=== PATIENT | male | born 1970 | race Caucasian/White ===

== ENCOUNTER 2020-11-30 19:29 | Emergency (ER) | payer OTHER, SELFPAY ==
--- NOTE | ~2020-11-30 | CT_ITS ---
EXAMINATION: CT HEAD WITHOUT CONTRAST CT CERVICAL SPINE WITHOUT CONTRAST CLINICAL INFORMATION: Fall COMPARISON: None. TECHNIQUE: Multidetector CT imaging of the head and cervical spine was performed without the use of intravenous contrast. Multiplanar reformats are reviewed. This CT examination was performed using dose optimization techniques as appropriate, variously including the following: *Automated exposure control *Adjustment of mA and/or kV according to patient size (this includes techniques or standardized protocols for targeted exams where dose is matched to indication/reason for exam; i.e. extremities or head) *Use of iterative reconstruction technique DLP: 836 mGy-cm. FINDINGS: There is no evidence of acute intracranial hemorrhage or territorial infarction. No abnormal mass effect or midline shift is seen. Jose to white matter differentiation is well preserved. No extra-axial fluid collections are identified. The ventricles are normal in size. There is no abnormal attenuation within the brain parenchyma. Bilateral posterior parietal scalp swelling and subgaleal hematomas. Calvarium and skull base intact. Atlantooccipital alignment is maintained. The vertebral bodies and posterior elements align normally. No acute fracture or subluxation. Vertebral body heights are maintained.Endplate osteophytes present from C3 through C7. Facet arthropathy present at T2-T3 and the left and C7-T1 on the left. The cervicomedullary junction and spinal cord are grossly unremarkable. The paraspinal soft tissues are unremarkable. The imaged lung apices are clear CT/CT cervical spine wo con IMPRESSION: No acute intracranial pathology. No cervical spine fracture or malalignment.
--- NOTE | ~2020-11-30 | CT_ITS ---
EXAMINATION: CT HEAD WITHOUT CONTRAST CT CERVICAL SPINE WITHOUT CONTRAST CLINICAL INFORMATION: Fall COMPARISON: None. TECHNIQUE: Multidetector CT imaging of the head and cervical spine was performed without the use of intravenous contrast. Multiplanar reformats are reviewed. This CT examination was performed using dose optimization techniques as appropriate, variously including the following: *Automated exposure control *Adjustment of mA and/or kV according to patient size (this includes techniques or standardized protocols for targeted exams where dose is matched to indication/reason for exam; i.e. extremities or head) *Use of iterative reconstruction technique DLP: 836 mGy-cm. FINDINGS: There is no evidence of acute intracranial hemorrhage or territorial infarction. No abnormal mass effect or midline shift is seen. Jose to white matter differentiation is well preserved. No extra-axial fluid collections are identified. The ventricles are normal in size. There is no abnormal attenuation within the brain parenchyma. Bilateral posterior parietal scalp swelling and subgaleal hematomas. Calvarium and skull base intact. Atlantooccipital alignment is maintained. The vertebral bodies and posterior elements align normally. No acute fracture or subluxation. Vertebral body heights are maintained.Endplate osteophytes present from C3 through C7. Facet arthropathy present at T2-T3 and the left and C7-T1 on the left. The cervicomedullary junction and spinal cord are grossly unremarkable. The paraspinal soft tissues are unremarkable. The imaged lung apices are clear CT/CT head/brain wo con IMPRESSION: No acute intracranial pathology. No cervical spine fracture or malalignment.
[2020-11-30 19:33] VITALS: BP 159/99; PULSE 100; RESP 16; TEMP 35.9; O2SAT 98; BMI 40.8
[2020-11-30 21:42] VITALS: BP 197/102; PULSE 88; RESP 16; TEMP 36.3; O2SAT 97
--- NOTE | 2020-11-30 23:24 | ED_ITS ---
HPI - Fall General Chief Complaint: Fall Stated Complaint: fall Time Seen by Provider: 12/01/20 00:45 Source: patient Mode of arrival: ambulatory Limitations: no limitations History of Present Illness HPI Narrative: 50-year-old male presents with injury sustained from a fall. Stated he lost his balance when he tripped over his cane and landed on his head. Did not lose consciousness, and did not report any other symptoms at this time. complaint: fall Onset (ago): hour(s) (Within the hour of arrival) Fall from: standing Fall witnessed: no Place fall occurred: home Loss of consciousness: none Prolonged down time: no Symptoms prior to fall: none Context: tripped/slipped Location of injury: head Severity: moderate Quality: aching Associated symptoms (after fall): headache, neck pain and lightheaded Related Data Allergies Allergy/AdvReac Type Severity Reaction Status Date / Time No Known Allergies Allergy Unverified 12/08/19 19:26 [No Known Allergies*] Review of Systems Review of Systems: Constitutional: No Fever, No Chills ENT/Mouth: No Ear Pain, No Hoarseness, No sore throat Eyes: No Eye Pain, No Swelling, No Redness, No Foreign Body Cardiovascular: No Chest Pain, No SOB Respiratory: No Cough, No Dyspnea Gastrointestinal: No Nausea, No Vomiting, No Diarrhea, No abdominal Pain Genitourinary: No Dysuria, No Hematuria Musculoskeletal: positive neck pain, No Myalgias, No Joint Swelling Skin: No Skin lacerations, No rash Neuro: No Weakness, No Numbness, No Paresthesias, No Loss of Consciousness, positive Dizziness, positive Headache Psych: No Anxiety/Panic, No Depression Heme/Lymph: no easy bruising, no Lymphadenopathy Endocrine: No Polyuria, No Polydipsia Yes all other systems are reviewed and are negative COUNTS INCLUDE 234 BEDS AT THE [facility] Past Medical History Attestation statement: The following information was validated with the patient. Source: old records reviewed Social History Social History Advance Directives: No Advance Directives Information Provided: No Physical Exam Vital Signs: Vital Signs: Last Vital Signs Temp 97.4 F 11/30/20 21:42 Pulse 86 12/01/20 00:53 Resp 18 12/01/20 00:53 BP 182/97 H 12/01/20 00:53 Pulse Ox 97 11/30/20 21:42 Body Mass Index 40.8 Appearance: Alert. Oriented X3. No acute distress. Eyes: Pupils equal, round and reactive to light. Sclera nonicteric. ENT: Pharynx normal. Moist mucous membranes. Neck: Normal inspection. Neck supple. Tenderness to minimal vertebral palpation. CVS: Normal heart rate and rhythm. Pulses normal. Respiratory: No respiratory distress. Breath sounds normal. Abdomen: Soft and nontender. Obese. Skin: Skin warm and dry. Normal skin color. Normal skin turgor. Extremities: No lower extremity edema. Gait awkward but balanced with cane. Neuro: No motor deficit. No sensory deficit. Cranial nerves 2-12 intact. Course Course Course Narrative: 50-year-old male presents with injury sustained from a fall. He stated he tripped over his cane and landed hitting his head on the ground. Did not report any loss of consciousness however on physical exam he has 10/10 tenderness to minimal palpation. He does have full range of motion to all extremities and strength 5/5 to all extremities. Pain is inconsistent with injury. Patient does appear to have cognitive deficit. Will order CT scan of head and cervical spine. CT of head and cervical spine negative for acute findings requiring emergent intervention. Patient discharged home. Patient verbalized understanding of and agrees to plan. MDM - Fall Differential Diagnosis Differential diagnosis: Likely compression fracture and concussion without loss of consciousness Medical Records Attestation: I reviewed the patient's medical records. Discharge Plan Discharge Clinical Impression: Concussion without loss of consciousness Qualifiers: Encounter type: initial encounter Qualified Code(s): S06.0X0A - Concussion without loss of consciousness, initial encounter Concussion Qualifiers: Encounter type: initial encounter Loss of consciousness presence/duration: without LOC Qualified Code(s): S06.0X0A - Concussion without loss of c onsciousness, initial encounter Patient Disposition: Home, Self-Care Instructions: Concussion (ED), Post Concussion Syndrome (ED) Additional Instructions: You were evaluated for injuries sustained from a fall. CT scan of head and neck are negative for acute findings requiring emergent intervention. Your symptoms are consistent with concussion. Please follow-up with primary care provider for further follow-up. Thank you for choosing this emergency department for evaluation. Please follow-up with primary care physician as needed. Return to the emergency department for any new, concerning, or worsening symptoms.
[2020-12-01 00:44] VITALS: BP 130/86; PULSE 133; RESP 18
--- NOTE | 2020-12-01 00:48 | PC.NURSE ---
ADDENDUM HR WAS NOT 133 AND CHARTED ON WRONG PT.
[2020-12-01 00:53] VITALS: BP 182/97; PULSE 86; RESP 18
--- NOTE | 2020-12-01 00:54 | PC.NURSE ---
pt to x-ray ambulatory with steady even gait.
--- NOTE | 2020-12-01 01:12 | PC.NURSE ---
pt returns to room in nad.
== END 2020-12-01 02:00 | disposition home or self-care (01) ==
PROVIDERS: Emergency Provider Student in an Organized Health Care Education/Training Program
DX: S06.0X0A Concussion without loss of consciousness, initial encounter (principal); M54.2 Cervicalgia; G44.309 Post-traumatic headache, unspecified, not intractable; W01.0XXA Fall on same level from slipping, tripping and stumbling without subsequent striking against object, initial encounter; Y93.9 Activity, unspecified; Y92.9 Unspecified place or not applicable; Y99.9 Unspecified external cause status
CPT/HCPCS: 70450; 72125; 99283; 99284

== ENCOUNTER 2022-10-27 18:29 | Emergency (ER) | payer OTHER, SELFPAY ==
--- NOTE | ~2022-10-27 | XR_ITS ---
EXAMINATION: XR WRIST, LEFT XR HAND, LEFT CLINICAL INFORMATION: Pain. Injury. COMPARISON: None available. TECHNIQUE: 4 views of the left hand and wrist FINDINGS: No acute fracture or dislocation. There is arthritis at the first SNF joint and trapezoid trapezium scaphoid joints. There may be old trauma to the base of the metacarpal bones. There is question widening of the scapholunate distance. There is slight dorsal tilt of the lunate on the lateral view. XR/XR hand wrist LT IMPRESSION: No acute fracture or dislocation. Questionable trauma to the base of the metacarpal bones. Arthritis at the first SNF joint and trapezoid trapezium scaphoid joints. Question slightly widened scapholunate distance and dorsal tilt of the lunate.
--- NOTE | ~2022-10-27 | XR_ITS ---
EXAMINATION: LEFT KNEE, LEFT WRIST AND HAND CLINICAL INFORMATION: Fall COMPARISON: None available. TECHNIQUE: 5 views of the right knee 5 views left wrist and hand FINDINGS: Left knee: No fractures or dislocations. No chondrocalcinosis. Small osteophyte is seen in the distal posterior tibial metaphysis. Some mild vascular calcification is present. Left wrist and hand: No significant bone, joint or soft tissue abnormality is seen no fractures or dislocations. No chondrocalcinosis. XR/XR elbow LT min 3V IMPRESSION: No evidence of an acute osseous injury.
--- NOTE | ~2022-10-27 | XR_ITS ---
EXAMINATION: LEFT KNEE, LEFT WRIST AND HAND CLINICAL INFORMATION: Fall COMPARISON: None available. TECHNIQUE: 5 views of the right knee 5 views left wrist and hand FINDINGS: Left knee: No fractures or dislocations. No chondrocalcinosis. Small osteophyte is seen in the distal posterior tibial metaphysis. Some mild vascular calcification is present. Left wrist and hand: No significant bone, joint or soft tissue abnormality is seen no fractures or dislocations. No chondrocalcinosis. XR/XR knee LT 4V IMPRESSION: No evidence of an acute osseous injury.
--- NOTE | 2022-10-27 19:44 | ED.GENADULT ---
HPI - General Adult General Chief complaint: Fall Stated complaint: fall/left hand and leg injury Time Seen by Provider: 10/27/22 21:57 Source: patient Mode of arrival: ambulatory Limitations: no limitations History of Present Illness HPI narrative: missed a step yesterday fell and tried to grab on to something injuring L knee and L wrist/elbow and hand he did hit head but no LOC. He has pain mostly in L wrist. 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 No vomiting, no confusion. MD complaint: fall Onset (ago): day(s) (1) Location: head, left, upper extremity and lower extremity Radiation: non-radiation Severity: mild Quality: aching and dull Pain Consistency: constant Relieving factors: immobilization Exacerbating factors: movement Associated symptoms: denies other symptoms Treatments prior to arrival: none Related Data Allergies Allergy/AdvReac Type Severity Reaction Status Date / Time shrimp AdvReac Anaphylaxis Verified 10/27/22 19:52 Review of Systems Review of Systems: Constitutional : No Fever, No Chills Cardiovascular : No Chest Pain, No SOB Respiratory : No Cough, No Dyspnea Gastrointestinal : No Nausea, No Vomiting, No Diarrhea, No abdominal Pain Genitourinary : No Dysuria, No Hematuria Musculoskeletal : positive joint pain, No Myalgias, pos Joint Swelling Skin : No Skin lacerations, No rash Neuro : No Weakness, No Numbness, No Loss of Consciousness, No Dizziness, No Headache All other systems reviewed and are negative [facility] Past Medical History Attestation statement: The following information was validated with the patient. Medical History Neuropathy Social History Social History (Updated 10/27/22 @ 22:44 by Olena Noonan DO) Patient Tobacco Use Status: Never used Tobacco Physical Exam ED Vital Signs: Vital Signs - 24 hr 10/27/22 19:48 Temperature 97 F Pulse Rate 89 Respiratory Rate 16 Blood Pressure 146/96 H Pulse Oximetry 98 BMI result Body Mass Index 39.3 Appearance: Alert. Oriented X3. No acute distress. Eyes: Pupils equal, round and reactive to light. ENT: Pharynx normal. atraumatic Neck: Normal inspection. Neck supple. CVS: Normal heart rate and rhythm. Pulses normal. Respiratory: No respiratory distress. Breath sounds normal. Abdomen: Soft and nontender. Skin: Skin warm and dry. Normal skin color. Normal skin turgor. Extremities: No lower extremity edema. L knee mild contusion but quads tendon intact distal NV intact, L wrist and hand no swelling or deformity small abrasions on L forearm distal NV intact, has ttp and pulls away when palpating snuff box movement of thumb in abd and adduction intact Neuro: Oriented X 3. No motor deficit. No sensory deficit. Course Course Course Narrative: RME performed by Jyoti Lujan PA-C. Patient is a 52 year old assigned male at presenting to the emergency department with left hand pain, left wrist, left elbow, and left knee pain. Patient states that he was walking up the stairs when he tripped and caught himself, causing this pain. Patient denies any loss of consciousness. Imaging ordered. Patient placed back in the waiting room pending room availability and results. Procedures Orthopedic Splinting/Casting Injury #1: Side: left Upper Extremity Injury Location: wrist Upper Extremity Immobilizer: thumb spica Medical Decision Making Medical Decision Making MDM Narrative: 52 yo male with hx of falls due to neuropathy s/p fall did hit head which was minor but not on thinners no vomiting and GCS 15 main complaint of pain in L wrist, elbow and L knee - xrays shows no fracture and he is distal NV intact but concern for possible scaphoid injury given he has ttp. I have no other injuries or concners on exam will put in thumb spica and refer to orthopedics given snuffbox ttp to rule out possible scaphoid injury. Differential Diagnosis Differential Diagnoses: The differential diagnosis associated with the presentation includes fracture, sprain, strain, contusion Admission/Observation Consideration of admission/observation: Escalation of care including admission/observation considered ambulating without issue no need for rehab can be DC home Independent Interpretation I performed an independent interpretation of an: Plain X-Ray Interpretation: no fractures seen Radiology Impression Discussion of test interpretation with radiology: I have reviewed the radiologist's reading. External Record Review External record reviewed: Office record Discharge Plan Discharge Clinical Impression: Hand sprain, Contusion of knee, Elbow strain Patient Disposition: Home, Self-Care Instructions: Muscle Strain (ED), Sprain (ED) Additional Instructions: rest, ice, elevate - wear splint until cleared by orthopedics would repeat xrays of Left hand given your have pain your snuffbox after fall though no fractures were seen. retun for numbness, weakness, cold blue hand or any other concerns. call orthopedics to follow up in 1 week Referrals: Tanner Lin MD [Physician] - 1 week (call to schedule appointment) Interventions: ED Discharge Assessment Last Done: 10/27/22 22:45 Discharge Date/Time: 10/27/22 22:45
[2022-10-27 19:48] VITALS: BP 146/96; PULSE 89; RESP 16; TEMP 36.1; O2SAT 98; BMI 39.3
--- NOTE | 2022-10-27 22:05 | PC.NURSE ---
Pt ambulating with steady gait into ED with cane. Pt states he fell down and has pain in his left hand, left foot and left hip. Denies dizziness, SOB, chest pain or other traumas. No apparent distress at this time, awaiting provider
== END 2022-10-27 22:45 | disposition home or self-care (01) ==
PROVIDERS: Emergency Provider Emergency Medicine
DX: S63.592A Other specified sprain of left wrist, initial encounter (principal); S46.812A Strain of other muscles, fascia and tendons at shoulder and upper arm level, left arm, initial encounter; S80.02XA Contusion of left knee, initial encounter; W18.30XA Fall on same level, unspecified, initial encounter; G62.9 Polyneuropathy, unspecified; Y93.9 Activity, unspecified; Y92.9 Unspecified place or not applicable; Y99.9 Unspecified external cause status
CPT/HCPCS: 29125; 73080; 73110; 73130; 73564; 99282; 99283

== ENCOUNTER 2022-10-31 08:48 | Outpatient (AMB) | payer OTHER, SELFPAY ==
[2022-10-31 08:49] VITALS: BMI 39.3
--- NOTE | 2022-10-31 08:49 | A.OFFVIS_ITS ---
Intake Vital Signs 10/31/22 08:49 Height 6 ft 2 in Weight 306 lb BMI 39.3 Intake Visit Reasons: ED F/U- LT Snuffbox INJ, DOI 10/26/22 Intake Note: Carlos 52 yr old male presents today for his left hand injury from 10/26/22. Patient states he was walking up the stairs when he tripped and caught himself, seen in ED where xrays were done and patient placed in a removable splint. Currently patient reports he has pain when he is without his splint. Pain is mainly by his thumb. Hx of neuropathy. ? Allergies shrimp Adverse Reaction (Verified 10/27/22 19:52) Anaphylaxis HPI ED F/U- LT Snuffbox INJ, DOI 10/26/22 HPI Details 52-year-old male who presents in the office today, as a new patient, for an evaluation of left wrist pain. The patient presented to the ED on 10/27/2022 status post missing a step when walking up the stair causing him to fall when attempting to grab something. He reported hitting his left knee, hand, wrist, and elbow. X-rays of the left hand were obtained. He was placed in a thumb spica splint. He reports pain when he is out of the splint. He claims the pain is mainly in the left thumb. Patient has a history of neuropathy, which causes him to fall. [facility] Medical History Neuropathy Social History (Updated 10/31/22 @ 08:55 by SHARATH Garcia) Patient Tobacco Use Status: Never used Tobacco Current occupational status: disabled Current occupation: rt hand / Review of Systems Const All systems reviewed & are unremarkable except as noted in HPI and below Physical Exam Vital Signs: BMI result Body Mass Index 39.3 Const General: cooperative and no acute distress Orientation/consciousness: patient oriented x3 Resp Effort & Inspection: normal respiratory effort and able to speak in complete sentences Cardio Peripheral pulses: Peripheral pulses 2+ throughout Skin General skin exam: no rashes or lesions noted Neuro General: patient oriented x3 Extrem Other: Left hand: Normal to inspection. No ecchymosis, erythema, or edema. Tenderness to palpation over the anotomical snuffbox and 1st dorsal compartment. Able to perform full finger flexion, extension, abduction, adduction, finger cross, okay sign, and thumbs up without deficit. Able to make a closed fist. Sensation intact. Capillary refill is brisk. Radial pulse intact. Assessment & Plan Assessment & Plan (1) Scaphoid fracture: Code(s): S62.009A - Unspecified fracture of navicular [scaphoid] bone of unspecified wrist, initial encounter for closed fracture Plan Mr. Prasad Vinson is a 52-year-old male who presents in the office today, as a new patient, for an evaluation of left wrist pain. The patient presented to the ED on 10/27/2022 status post missing a step when walking up the stair causing him to fall when attempting to grab something. He reported hitting his left knee, hand, wrist, and elbow. X-rays of the left hand were obtained. He was placed in a thumb spica splint. He reports pain when he is out of the splint. He claims the pain is mainly in the left thumb. Patient has a history of neuropathy, which causes him to fall. The patient was placed in a thermal molded thumb spica, off the shelf, while in the office today. He may remove it only for hygiene purposes. He demonstrates understanding of this. He will be referred for a CT scan to further evaluate for a possible scaphoid fracture. Follow up will be after the CT scan is obtained, or sooner if needed. X-rays of the left wrist which were obtained while in the office today and were reviewed by me, Elsie Barden PA-C, revealed no evidence of acute fractures or dislocation. X-rays of the left wrist/hand, obtained on 10/27/2022, revealed: No acute fracture or dislocation. Questionable trauma to the base of the metacarpal bones. Arthritis at the first USP joint and trapezoid trapezium scaphoid joints. Question slightly widened scapholunate distance and dorsal tilt of the lunate. Orders: Orders XR wrist LT w scaphoid Today M25.539 - Pain in unspecified wrist CT hand RT wo IV con Today S62.009A - Unspecified fracture of navicular [scaphoid] bone of unspecified wrist, initial encounter for closed fracture Patient Instructions: Scribed for Elsie Braden PA-C by Rosalba Gilbert ophthalmic medical technologist, on 10/31/2022 at 8:50 am, EST. Coding Level of Care Code New Pt Level 4 (48066) Diagnoses Scaphoid fracture S62.009A
== END 2022-10-31 09:30 | disposition home or self-care (01) ==
PROVIDERS: Visit Provider Physician Assistant
DX: S62.009A Unspecified fracture of navicular [scaphoid] bone of unspecified wrist, initial encounter for closed fracture (principal)
CPT/HCPCS: 99204

== ENCOUNTER 2022-10-31 08:48 | Outpatient (REF) | payer OTHER, SELFPAY ==
--- NOTE | ~2022-10-31 | XR_ITS ---
EXAMINATION: XR WRIST, LEFT CLINICAL INFORMATION: Pain status-post injury. COMPARISON: Radiographs dated 10/27/2022. TECHNIQUE: PA, lateral, and oblique views of the left wrist, together with a dedicated navicular view of the bilateral wrists.. FINDINGS: Bony alignment and mineralization are normal. The proximal and distal carpal rows are intact. There is minimal osteoarthritic change of the first carpometacarpal joint. There is minimal degenerative calcification adjacent to the articulation between the scaphoid and trapezium. No fracture or dislocation is seen. There is no abnormal bone erosion. No focal soft tissue swelling, gas or foreign body is seen. XR/XR wrist LT w scaphoid IMPRESSION: 1. No fracture or dislocation is seen. 2. There is minimal osteoarthritic change of the first carpometacarpal joint.
== END 2022-10-31 08:49 | disposition home or self-care (01) ==
LOC: HO.HOSX 08:48
PROVIDERS: Visit Provider Physician Assistant
DX: S62.002A Unspecified fracture of navicular [scaphoid] bone of left wrist, initial encounter for closed fracture (principal)
CPT/HCPCS: 73110; 99202

== ENCOUNTER 2022-11-26 06:48 | Outpatient (REF) | payer OTHER, SELFPAY | END 2022-11-26 06:49 | disposition home or self-care (01) | LOC: HO.CT 06:48 | PROVIDERS: Visit Provider Physician Assistant | DX: Z13.89 Encounter for screening for other disorder (principal) ==

== ENCOUNTER 2022-12-10 07:12 | Outpatient (REF) | payer OTHER, SELFPAY ==
--- NOTE | ~2022-12-10 | CT_ITS ---
EXAMINATION: CT HAND WITHOUT CONTRAST, LEFT CLINICAL INFORMATION: Pain. Evaluate for a scaphoid fracture. COMPARISON: Left wrist radiographs dated 10/31/2022. TECHNIQUE: Contiguous axial CT images of the left hand were obtained without contrast. Sagittal and coronal reformats were provided and reviewed. This CT examination was performed using dose optimization techniques as appropriate, variously including the following: *Automated exposure control *Adjustment of mA and/or kV according to patient size (this includes techniques or standardized protocols for targeted exams where dose is matched to indication/reason for exam; i.e. extremities or head) *Use of iterative reconstruction technique. DOSE: 187 mGy-cm FINDINGS: Significant widening of the scapholunate interval measuring up to 0.8 cm in ML dimension, indicating an underlying scapholunate ligament tear. Widening appears new when compared to the prior radiographs. No acute fracture. Specifically, the scaphoid is intact. Joint space narrowing with marginal osteophytes at the triscaphe and 1st carpometacarpal joints as well as at the 2nd carpometacarpal joint. No concerning lytic or blastic osseous lesion. No abnormal soft tissue mass or fluid collection. No significant joint effusion. The visualized flexor and extensor tendons are grossly intact, however, evaluation is limited on CT examination. CT/CT hand LT wo IV con IMPRESSION: 1. Significant widening of the scapholunate interval measuring up to 0.6 cm in ML dimension, indicating an underlying scapholunate ligament tear. 2. No acute fracture. Specifically, the scaphoid is intact. 3. [id number] osteoarthritis at the triscaphe and 1st carpometacarpal joints as well as the 2nd carpometacarpal joint.
--- NOTE | ~2022-12-10 | CT_ITS ---
EXAMINATION: CT HAND WITHOUT CONTRAST, RIGHT the examination was not performed
== END 2022-12-10 07:13 | disposition home or self-care (01) ==
LOC: HO.CT 07:12
PROVIDERS: Visit Provider Physician Assistant
DX: S62.002A Unspecified fracture of navicular [scaphoid] bone of left wrist, initial encounter for closed fracture (principal); S62.001A Unspecified fracture of navicular [scaphoid] bone of right wrist, initial encounter for closed fracture
CPT/HCPCS: 73200

== ENCOUNTER 2022-12-16 11:57 | Outpatient (REF) | payer OTHER, SELFPAY ==
--- NOTE | ~2022-12-16 | XR_ITS ---
EXAMINATION: XR WRIST, LEFT CLINICAL INFORMATION: Pain in left wrist COMPARISON: Left wrist 11/01/2022 TECHNIQUE: PA, lateral, and oblique views of the left wrist. FINDINGS: Bone alignment and mineralization are normal. No fracture or dislocation. There is minimal osteoarthritic change of the first carpometacarpal joint. Negative ulnar variance. No focal soft tissue swelling. XR/XR wrist LT w scaphoid IMPRESSION: 1. No fracture or dislocation. 2. Minimal osteoarthritic change of the first carpometacarpal joint.
== END 2022-12-16 11:58 | disposition home or self-care (01) ==
LOC: HO.HOSX 11:57
PROVIDERS: Visit Provider Orthopaedic Surgery
DX: S63.8X2A Sprain of other part of left wrist and hand, initial encounter (principal); E11.9 Type 2 diabetes mellitus without complications
CPT/HCPCS: 73110; 99212

== ENCOUNTER 2022-12-16 14:24 | Outpatient (AMB) | payer OTHER, SELFPAY ==
--- NOTE | 2022-12-16 14:45 | A.OFFVIS_ITS ---
Intake Vital Signs 12/16/22 14:46 Height 6 ft 2 in Weight 306 lb BMI 39.3 Intake Visit Reasons: O/V left Scaphoid fracture 10/26/22 per Intake Note: Carlos 52 yr old male presents today for his follow up visit for his left Scaphoid fracture 10/26/22 CT scan review. The patient reports less pain than before except when he goes to grab something. Allergies shrimp Adverse Reaction (Verified 12/16/22 15:13) Anaphylaxis Medication List - Last Reconciled 12/16/22 by Melani Power, COLLIN atorvastatin 20 mg PO BEDTIME cetirizine 10 mg PO DAILY dulaglutide (Trulicity) 3 mg subcut QWEEK dulaglutide (Trulicity) 1.5 mg subcut QWEEK escitalopram oxalate mg PO gabapentin 300 mg PO TID metformin 1,000 mg PO BID trazodone 200 mg PO BEDTIME HPI O/V left Scaphoid fracture 10/26/22 per HPI Details Carlos is a 52 year old right hand dominant man who presents for a follow-up of his left wrist injury, DOI: 10/26/22 from a fall. He is here for a CT scan review of his wrist. He says he is doing better, but continues to have pain particularly when he goes to grab something. He is seen today wearing his thermal molded thumb spica wrist splint and he walks with a cane He has a Hx of Diabetic neuropathy affecting his feet, particularly his left foot, and says he falls often due to this. He says his Diabetes is better controlled now compared to last year, but his most recent HgA1c he remembers was ~9.0% He says he has arthritis in multiple parts of his body, including his feet, knees, and neck He is currently unemployed and has not worked in 5+ years. [facility] Medical History Neuropathy Social History Patient Tobacco Use Status: Never used Tobacco Current occupational status: disabled Current occupation: rt hand / Review of Systems Const All systems reviewed & are unremarkable except as noted in HPI and below Physical Exam Vital Signs: BMI result Body Mass Index 39.3 Const General: cooperative, healthy appearing and no acute distress Orientation/consciousness: patient oriented x3 HEENT Head: Yes normocephalic and Yes atraumatic Eyes EOM: EOMs intact bilaterally Resp Effort & Inspection: normal respiratory effort and able to speak in complete sentences Cardio Jugular venous distension: no JVD Skin General skin exam: turgor normal Rashes: no rashes Neuro General: patient oriented x3 Extrem Other: Evaluation of Left Upper Extremity: The patient is alert, oriented, and in no acute distress He had a thermal molded thumb spica splint that he had been wearing some. He took that off in clinic today. Neuro: Median, Ulnar, Radial nerves motor and sensory intact and sensation is normal to the tips of all digits Vascular: Cap refill brisk ROM: He can make a fist and extend all his digits He can make a fist with some strength and no pain. He actually had surprisingly good range of motion considering he was supposed to be wearing that thermal molded thumb spica splint. Had active wrist flexion to at least 50 degrees an active wrist extension to at least 50 degrees without pain. He had good prono-supination without pain other than some mild discomfort with full supination. He did have some mild tenderness over the radial aspect of the radiocarpal joint. No tenderness over the scapholunate interval or the radial lunate joint. No tenderness over the DRUJ or the ulnocarpal joint. Skin: No lacerations or abrasions. General: No Ecchymosis. No Erythema or evidence of infection. Radiographs: 3 views of the left wrist were taken and viewed by me today in clinic. They show no fractures or dislocations. Has a positive scaphoid ring sign and some evidence of scapholunate widening. CT scan: FINDINGS: Significant widening of the scapholunate interval measuring up to 0.8 cm in ML dimension, indicating an underlying scapholunate ligament tear. Widening appears new when compared to the prior radiographs. No acute fracture. Specifically, the scaphoid is intact. Joint space narrowing with marginal osteophytes at the triscaphe and 1st carpometacarpal joints as well as at the 2nd carpometacarpal joint. No concerning lytic or blastic osseous lesion. No abnormal soft tissue mass or fluid collection. No significant joint effusion. The visualized flexor and extensor tendons are grossly intact, however, evaluation is limited on CT examination. CT/CT hand LT wo IV con IMPRESSION: 1. Significant widening of the scapholunate interval measuring up to 0.6 cm in ML dimension, indicating an underlying scapholunate ligament tear. 2. No acute fracture. Specifically, the scaphoid is intact. 3. Lrrz-en-rtbrxoot osteoarthritis at the triscaphe and 1st carpometacarpal joints as well as the 2nd carpometacarpal joint. Juan Luis Reed MD 12/10/22 Psych Appearance: grossly normal Affect: normal affect Attitude: cooperative Assessment & Plan Assessment & Plan (1) Tear of left scapholunate ligament: Code(s): S63.8X2A - Sprain of other part of left wrist and hand, initial encounter (2) DISI (dorsal intercalated segment instability): Code(s): M25.339 - Other instability, unspecified wrist (3) Diabetes mellitus: Code(s): E11.9 - Type 2 diabetes mellitus without complications Plan Assessment & Plan: 1. Left scapholunate (SLIL) tear, with a DISI deformity Possibly From a fall, DOI: 10/26/22 I educated him about this condition I had a long discussion with him concerning the risks and benefits of surgery He has arthritis in both feet both knees and his C-spine and walks with a cane. He has diabetes that was out of control in over 10, which is now reportedly 9 point something, but not under good control. He is not involved in heavy labor, and has not worked and more than 5 years due to his other medical conditions. I think that the risk of infection is significantly higher in this patient with his uncontrolled diabetes given that he would likely have persistent K-wires for at least 6 weeks following up a possible repair versus reconstruction of the scapholunate interval. Also I think that there is increased risk of failure of our repair/reconstruction in this patient with uncontrolled diabetes. Additionally, he is 52 and it sounds like he has not going to be using his left wrist for heavy work which decreases his risk for early arthritic changes.. I recommend we manage this non-operatively, and he is in agreement. I have discontinued his thermal molded splint. I want him to work on range of motion and maintain it. He was fitted for a velcro splint to wear with heavy activity, or when symptomatic. He is not to wear this daily He will follow up in 2 months just to see how he is doing.. He may cancel this if he is doing well Please note that greater than 30 minutes was spent with this patient gaining the history, reviewing the studies, evaluating the patient, coming up with a treatment plan and discussing this with the patient in addition to documenting the visit. Scribed for Angely Husain MD by Kvng Gamble, medical laboratory scientist, on 12/16/22 at 3:40 PM, EST. Orders: Orders XR wrist LT w scaphoid Today M25.532 - Pain in left wrist Coding Level of Care Code Est Pt Level 4 (09897) Diagnoses Tear of left scapholunate ligament S63.8X2A DISI (dorsal intercalated segment instability) M25.339 Diabetes mellitus E11.9
[2022-12-16 14:46] VITALS: BMI 39.3
== END 2022-12-16 15:52 | disposition home or self-care (01) ==
PROVIDERS: Visit Provider Orthopaedic Surgery
DX: S63.8X2A Sprain of other part of left wrist and hand, initial encounter (principal); S63.392A Traumatic rupture of other ligament of left wrist, initial encounter; M25.332 Other instability, left wrist
CPT/HCPCS: 99214

== ENCOUNTER 2023-02-24 10:10 | Outpatient (AMB) | payer OTHER, SELFPAY ==
--- NOTE | 2023-02-24 10:28 | MHC.OFFVIS ---
Intake Vital Signs 02/24/23 10:34 Height 6 ft 2 in Weight 306 lb BMI 39.3 Intake Visit Reasons: O/V left Scaphoid fracture 10/26/22 per Intake Note: Carlos 52 yr old male presents today for his follow up visit for his left Scaphoid fracture 10/26/22. States he wears his thermo molded brace as needed, however states he continues to have pain. Allergies shrimp Adverse Reaction (Verified 02/24/23 10:32) Anaphylaxis HPI O/V left Scaphoid fracture 10/26/22 per HPI Details Carlos is a 52 year old right hand dominant man whose chief complaint today is of pain in his left hand. He indicates most of his pain is in the distal aspect of the thenar mass, almost in the volar aspect of the 1st web space. 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 He denies any locking or catching. He was last seen by me on 12/16/2022 to discuss his left scapholunate ligament tear, possible DOI: 10/26/22 from a fall. We decided to manage this non operatively, in large part because of his poorly controlled diabetes. Please see my note from 12/16/2022 for additional information as necessary. He was given a velcro wrist splint to wear prn, and was told to discontinue his thermal molded splint. He has a Hx of Diabetic neuropathy affecting his feet, particularly his left foot, and says he falls often due to this. He says he continues to work on Diabetes control, but his most recent HgA1c he remembers was over 9 % He says he has arthritis in multiple parts of his body, including his feet, knees, and neck He is currently unemployed and has not worked in 5+ years. [facility] Medical History Neuropathy Social History Patient Tobacco Use Status: Never used Tobacco Current occupational status: disabled Current occupation: rt hand / Physical Exam Vital Signs: BMI result Body Mass Index 39.3 Extrem Other: Evaluation of Left Upper Extremity: The patient is alert, oriented, and in no acute distress Neuro: Dense numbness to the tips of all digits bilaterally No thenar or intrinsic wasting Good APB muscle belly firing and good finger cross Vascular: Cap refill brisk ROM: He can make a fist and extend all his digits He can make a fist with some strength and no pain. He had good prono-supination without pain He was most tender to palpation over distal aspect of the left thenar mass, essentially directly over the FPL tendon in this area. He did not appear to be more tender over the A1 henna, and did not have any locking or catching. He can make a fist and extend all of his digits and I did not see any locking or catching. I do not see any swelling erythema. He also demonstrates he sometimes gets some discomfort in the hypothenar area and then also over the volar aspect of the carpal tunnel. Radiographs: 3 views of the left wrist from 12/16/22 were again reviewed by me today. They show no fractures or dislocations. Has a positive scaphoid ring sign and some evidence of scapholunate widening. CT scan: FINDINGS: Significant widening of the scapholunate interval measuring up to 0.8 cm in ML dimension, indicating an underlying scapholunate ligament tear. Widening appears new when compared to the prior radiographs. No acute fracture. Specifically, the scaphoid is intact. Joint space narrowing with marginal osteophytes at the triscaphe and 1st carpometacarpal joints as well as at the 2nd carpometacarpal joint. No concerning lytic or blastic osseous lesion. No abnormal soft tissue mass or fluid collection. No significant joint effusion. The visualized flexor and extensor tendons are grossly intact, however, evaluation is limited on CT examination. CT/CT hand LT wo IV con IMPRESSION: 1. Significant widening of the scapholunate interval measuring up to 0.6 cm in ML dimension, indicating an underlying scapholunate ligament tear. 2. No acute fracture. Specifically, the scaphoid is intact. 3. Zkop-oq-hgzkczed osteoarthritis at the triscaphe and 1st carpometacarpal joints as well as the 2nd carpometacarpal joint. Juan Luis Reed MD 12/10/22 Please see the full report for additional details Assessment & Plan Assessment & Plan (1) Tear of left scapholunate ligament: Code(s): S63.8X2A - Sprain of other part of left wrist and hand, initial encounter (2) DISI (dorsal intercalated segment instability): Code(s): M25.339 - Other instability, unspecified wrist (3) Diabetes mellitus: Code(s): E11.9 - Type 2 diabetes mellitus without complications (4) Numbness of right hand: Code(s): R20.0 - Anesthesia of skin (5) Numbness of left hand: Code(s): R20.0 - Anesthesia of skin (6) Left hand pain: Code(s): M79.642 - Pain in left hand Plan Assessment & Plan: 1. Left hand pain Mostly over the FPL tendon within the thenar mass. Also some discomfort in the hypothenar area and also over the carpal tunnel. No new injury that we know of. No locking or catching. This is chief complaint today. 2. Bilateral hand numbness, R>L To the tips of all digits With dense numbness, worse at night It is unclear if this is related to his Diabetes, as he has a hx of Diabetic neuropathy in his feet I ordered a NCS to assess for peripheral nerve compression He will follow up when completed for review Note that he is having trouble getting his hemoglobin A1c below 9 at this point 3. Left scapholunate (SLIL) tear, with a DISI deformity Possibly From a fall, DOI: 10/26/22 No complaints of wrist pain today We are managing this non-operatively He has arthritis in both feet both knees and his C-spine and walks with a cane. He has diabetes that is not under good control, though he continues to work on this. Please see my previous note from 12/16/22 for more information Scribed for Angely Husain MD by Kvng Gamble, senior medical technologist, on 02/24/23 at 10:40 AM, EST. Orders: Orders NE nerve conduction velocity Today R20.0 - Anesthesia of skin, R20.2 - Paresthesia of skin Coding Level of Care Code Est Pt Level 4 (25499) Diagnoses Tear of left scapholunate ligament S63.8X2A DISI (dorsal intercalated segment instability) M25.339 Diabetes mellitus E11.9 Numbness of right hand R20.0 Numbness of left hand R20.0 Left hand pain M79.642
[2023-02-24 10:34] VITALS: BMI 39.3
== END 2023-02-24 11:03 | disposition home or self-care (01) ==
PROVIDERS: Visit Provider Orthopaedic Surgery
DX: R20.0 Anesthesia of skin (principal); M25.332 Other instability, left wrist; S63.8X2A Sprain of other part of left wrist and hand, initial encounter; E11.9 Type 2 diabetes mellitus without complications; M79.642 Pain in left hand
CPT/HCPCS: 99213

== ENCOUNTER → 2023-02-24 10:10 | Outpatient (BNVA) | payer OTHER, SELFPAY | PROVIDERS: Visit Provider Orthopaedic Surgery | DX: M79.642 Pain in left hand (principal); M25.332 Other instability, left wrist; S62.015A Nondisplaced fracture of distal pole of navicular [scaphoid] bone of left wrist, initial encounter for closed fracture; X58.XXXA Exposure to other specified factors, initial encounter; Y93.9 Activity, unspecified; Y92.9 Unspecified place or not applicable; Y99.8 Other external cause status; R20.0 Anesthesia of skin; R20.2 Paresthesia of skin; E11.40 Type 2 diabetes mellitus with diabetic neuropathy, unspecified; E11.65 Type 2 diabetes mellitus with hyperglycemia | CPT/HCPCS: 99212 ==

== ENCOUNTER 2023-04-03 14:53 | Outpatient (REF) | payer OTHER, SELFPAY ==
--- NOTE | 2023-04-03 14:57 | EMG_ITS ---
Chief complaint: ?Numbness on fingers, left worse than right.? Known history of diabetic neuropathy, affecting feet primarily. Reason for referral: Evaluate for Carpal Tunnel Syndrome Referred by: ?Dr. Husain Procedure done: ?Bilateral upper extremities NCS/EMG Precautions and/or limitations: None The limb temperature was monitored continuously and remained between 32-36 degrees C during the performance of the NCS. Ulnar motor NCS was performed with moderate elbow flexion between 70-90 degrees, with across-elbow distance of 10 cm. Nerve Conduction Studies Anti Sensory Summary Table ?Stim Site NR Onset (ms) Norm Onset (ms) Peak (ms) Norm Peak (ms) O-P Amp (?V) Norm O-P Amp Site1 Site2 Delta-0 (ms) Dist (cm) Tr (m/s) Norm Tr (m/s) Left Median Anti Sensory (2nd Digit) Wrist NR <3.6 >10 Wrist 2nd Digit 14.0 Right Median Anti Sensory (2nd Digit) Wrist NR <3.6 >10 Wrist 2nd Digit 14.0 Right Radial Anti Sensory (Thumb) Forearm ? 1.4 2.2 <3.1 7.4 Forearm Thumb 1.4 0.0 Left Ulnar Anti Sensory (5th Digit) Wrist NR <3.7 >15.0 Wrist 5th Digit 14.0 Right Ulnar Anti Sensory (5th Digit) Wrist NR <3.7 >15.0 Wrist 5th Digit 14.0 Motor Summary Table ?Stim Site NR Onset (ms) Norm Onset (ms) O-P Amp (mV) Norm O-P Amp iAmp (mV) Amp (1st) (%) Site1 Site2 Delta-0 (ms) Dist (cm) Tr (m/s) Norm Tr (m/s) Left Median Motor (Abd Poll Brev) Wrist ? 7.3 <3.9 5.3 >4.5 6.4 100.0 Elbow Wrist 6.3 24.0 38 >45 Elbow ? 13.6 3.8 4.7 71.7 Right Median Motor (Abd Poll Brev) Wrist ? 7.7 <3.9 5.4 >4.5 6.5 100.0 Elbow Wrist 4.3 22.0 51 >45 Elbow ? 12.0 4.1 5.1 75.9 Left Ulnar Motor (Abd Dig Minimi) Wrist ? 3.8 <3.0 4.7 >5 6.0 100.0 B Elbow Wrist 4.2 23.0 55 >45 B Elbow ? 8.0 3.5 4.7 74.5 A Elbow B Elbow 2.2 10.0 45 >45 A Elbow ? 10.2 2.1 2.9 44.7 Right Ulnar Motor (Abd Dig Minimi) Wrist ? 2.6 <3.0 6.0 >5 7.9 100.0 B Elbow Wrist 4.7 24.0 51 >45 B Elbow ? 7.3 5.8 7.4 96.7 A Elbow B Elbow 1.5 10.0 67 >45 A Elbow ? 8.8 4.5 5.8 75.0 EMG ?Side Muscle Nerve Root Ins Act Fibs Psw Amp Dur Poly Recrt Int Pat Comment Right 1stDorInt Ulnar C8-T1 Nml Nml Nml Nml Nml 0 Nml Complete Right FlexCarRad Median C6-7 Nml Nml Nml Nml Nml 0 Nml Complete Right Biceps Musculocut C5-6 Nml Nml Nml Nml Nml 0 Nml Complete Right Triceps Radial C6-7-8 Nml Nml Nml Nml Nml 0 Nml Complete Right Deltoid Axillary C5-6 Nml Nml Nml Nml Nml 0 Nml Complete Left 1stDorInt Ulnar C8-T1 Nml Nml Nml Nml Nml 0 Nml Complete Left FlexCarRad Median C6-7 Nml Nml Nml Nml Nml 0 Nml Complete Left Biceps Musculocut C5-6 Nml Nml Nml Nml Nml 0 Nml Complete Left Triceps Radial C6-7-8 Nml Nml Nml Nml Nml 0 Nml Complete Left Deltoid Axillary C5-6 Nml Nml Nml Nml Nml 0 Nml Complete FINDINGS: Right median motor nerve showed prolonged distal latency, normal amplitude and normal conduction velocity. Left median motor nerve showed prolonged distal latency, normal amplitude and slow conduction velocity. Right ulnar motor nerve showed prolonged distal latency, within normal amplitude without conduction block or slowing of conduction velocity across the elbow. Right median sensory nerve showed no response. Right ulnar sensory nerve showed no response. Right median sensory nerve showed small amplitude. Left median sensory nerve showed no response. Left ulnar sensory nerve showed no response. Concentric needle EMG was performed in selected muscles of the bilateral upper extremities. Study did not reveal signs of electric abnormalities as shown in the table below. ? IMPRESSION: 1. This is an abnormal study. 2. 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 Thank you for your kind referral. Yumi Ennis MD, AARON Board Certified, [place] [employer] and Rehabilitation (ABPMR) Board Certified, [place] Board [employer] Electrodiagnostic Medicine (ABEM) CODIN 13077 x 2 MTDD
== END 2023-04-03 14:54 | disposition home or self-care (01) ==
LOC: HO.NEURO 14:53
PROVIDERS: Visit Provider Orthopaedic Surgery
DX: R20.0 Anesthesia of skin (principal); R20.2 Paresthesia of skin
CPT/HCPCS: 95886; 95911

== ENCOUNTER → 2023-04-03 14:57 | Outpatient (BNV) | payer OTHER, SELFPAY | PROVIDERS: Visit Provider Physical Medicine & Rehabilitation | DX: G56.13 Other lesions of median nerve, bilateral upper limbs (principal) | CPT/HCPCS: 95886; 95911 ==